=== PATIENT | male | born 1985 | race Caucasian/White ===

== ENCOUNTER 2018-09-29 16:09 | Emergency (ER) | payer OTHER ==
[2018-09-29] MEDS ORDERED: Lidocaine 1% 20 ML MDV ONE (16:55)
[2018-09-29] MEDS ORDERED: Bacitracin/Neomycin/Polymyxin B Oint 0.9 GM U/D Packet ONE (16:58)
[2018-09-29] MEDS ORDERED: Bacitracin/Neomycin/Polymyxin B Oint 0.9 GM U/D Packet TOP ONE (17:00)
[2018-09-29] MEDS ORDERED: Lidocaine 1% 20 ML MDV INJECT ONE (17:00)
--- NOTE | 2018-09-29 17:17 | EDM.PDOC ---
ED HPI GENERAL MEDICAL PROBLEM - General Chief Complaint: Laceration Stated Complaint: RIGHT THUMB INJURY Time Seen by Provider: 09/29/18 16:37 Source of Information: Reports: Patient History Limitations: Reports: No Limitations - History of Present Illness INITIAL COMMENTS - FREE TEXT/NARRATIVE: Patient is a 33-year-old gentleman who presents to the emergency department this afternoon with a complaint of laceration to right thumb. Patient states he was working with sheet metal and accidentally cut finger just prior to arrival. Patient states he is up-to-date with tetanus as he had a 3 years ago. Denies any other injuries. Onset: Today Duration: Minutes: Location: Reports: Upper Extremity, Right Quality: Reports: Burning Severity: Mild Improves with: Reports: None Worsens with: Reports: None Context: Reports: Trauma (Cut on piece of metal) Associated Symptoms: Reports: No Other Symptoms Right Finger-Thumb Pain Score (Numeric/FACES): 7 - Related Data Allergies Allergy/AdvReac Type Severity Reaction Status Date / Time No Known Drug Allergies Allergy Other Verified 09/29/18 16:18 Home Meds: Home Meds . [No Known Home Meds] 09/29/18 [History] Past Medical History - Past Health History Medical/Surgical History: Denies Medical/Surgical History Social & Family History - Family History Family Medical History: Noncontributory - Tobacco Use Smoking Status *Q: Never Smoker - Caffeine Use Caffeine Use: Reports: Coffee - Recreational Drug Use Recreational Drug Use: No ED ROS GENERAL - Review of Systems Review Of Systems: ROS reveals no pertinent complaints other than HPI. Constitutional: Reports: No Symptoms HEENT: Reports: No Symptoms Respiratory: Reports: No Symptoms Cardiovascular: Reports: No Symptoms Endocrine: Reports: No Symptoms GI/Abdominal: Reports: No Symptoms : Reports: No Symptoms Musculoskeletal: Reports: Hand Pain (Right thumb) Skin: Reports: Wound (2 cm linear laceration to right medial thumb) Neurological: Reports: No Symptoms Psychiatric: Reports: No Symptoms Hematologic/Lymphatic: Reports: No Symptoms Immunologic: Reports: No Symptoms ED EXAM, SKIN/RASH Exam: See Below Exam Limited By: No Limitations General Appearance: Alert, WD/WN, No Apparent Distress Throat/Mouth: Normal Inspection, Normal Oropharynx, No Airway Compromise Head: Atraumatic, Normocephalic Neck: Normal Inspection Respiratory/Chest: No Respiratory Distress Extremities: Other (Linear laceration to right thumb) Neurological: Alert, Oriented, Normal Cognition Psychiatric: Normal Affect, Normal Mood Skin: Warm, Dry, Normal Color, No Rash, Wound/Incision (There is a 2 cm linear laceration on the medial aspect of the right thumb. There is no tendon involvement or deficit noted) ED SKIN PROCEDURES - Laceration/Wound Repair Right Medial Digit - 1st (Thumb) Lac/Wound length In cm: 2 Appearance: Superficial Distal NVT: Neuro & Vascular Intact, No Tendon Injury Anesthetic Type: Local Local Anesthesia - Lidocaine (Xylocaine): 1% Plain Local Anesthetic Volume: 2cc Skin Prep: Providone-Iodine (Betadine) Closed with: Sutures Suture Size: 4-0 # of Sutures: 6 Suture Type: Nylon, Interrupted Sterile Dressing Applied: Nurse Tetanus Status Addressed: Yes Complications: No Course - Vital Signs Last Recorded V/S: Last Vital Signs Temp 97.1 F 09/29/18 16:25 Pulse 67 09/29/18 16:25 Resp 14 09/29/18 16:25 BP 123/64 09/29/18 16:25 Pulse Ox 97 09/29/18 16:25 - Orders/Labs/Meds Meds: Medications Discontinued Medications Generic Name Dose Route Start Last Admin Trade Name Freq PRN Reason Stop Dose Admin Lidocaine HCl Confirm 09/29/18 16:55 09/29/18 17:06 Xylocaine 1% Administered 09/29/18 16:56 Not Given Dose 20 ml .ROUTE .STK-MED ONE Lidocaine HCl 1.5 ml 09/29/18 17:00 09/29/18 17:05 Xylocaine 1% INJECT 09/29/18 17:01 1.5 ml ONETIME ONE Administration Neomycin/Polymyxin/Bacitracin Confirm 09/29/18 16:58 09/29/18 17:06 Triple Antibiotic Oint Administered 09/29/18 16:59 Not Given Dose 1 each .ROUTE .STK-MED ONE Neomycin/Polymyxin/Bacitracin 1 each 09/29/18 17:00 Triple Antibiotic Oint TOP 09/29/18 17:01 ONETIME ONE Departure - Departure Time of Disposition: 17:16 Disposition: Home, Self-Care 01 Condition: Good Clinical Impression: Finger laceration Qualifiers: Encounter type: initial encounter Finger: thumb Damage to nail status: without damage Foreign body presence: without foreign body Laterality: right Qualified Code(s): S61.011A - Laceration without foreign body of right thumb without damage to nail, initial encounter - Discharge Information Instructions: Stitches, [place], or Adhesive Wound Closure, [id number], Laceration Care, Adult, [id number] Referrals: PCP,Not In Area [Primary Care Provider] - Additional Instructions: Follow-up with PCP in 10 days for suture removal. Return to emergency department sooner if symptoms continue or worsen. - Assessment/Plan Assessment:: Right thumb laceration repair Plan: Follow-up with PCP
== END 2018-09-29 17:25 | disposition home or self-care (01) ==
LOC: KA.ED 16:09
DX: S61.011A Laceration without foreign body of right thumb without damage to nail, initial encounter (principal); W26.8XXA Contact with other sharp object(s), not elsewhere classified, initial encounter
CPT/HCPCS: 12001; 99282; J2001